=== PATIENT | female | born 1980 | race American Indian/Alaskan Native ===

== ENCOUNTER 2016-10-02 12:49 | Emergency (ER) | payer BC, MEDICAID ==
[2016-10-02 12:56] VITALS: BMI 27.4
[2016-10-02 12:58] VITALS: BP 122/79; PULSE 70; RESP 19; TEMP 98.3; O2SAT 100
[2016-10-02] MEDS ORDERED: Naproxen 500 MG TAB PO ONE ×2 (13:09→13:15)
--- NOTE | 2016-10-02 13:15 | ED PDOC ---
HPI: General Adult Time Seen by Provider: 10/02/16 13:02 Chief Complaint (Provider): Neck pain History/Exam Limitations: no limitations Onset/Duration Of Symptoms: Hrs Current Symptoms Are (Timing): Still Present Severity: Moderate Additional Complaint(s): The pt is a 35yo female, no pertinent PMHx, presents to the ED for evaluation of left sided neck pain since this morning. Pt reports she woke up today and heard a crack in her neck; she reports taking 400 mg Motrin today without relief. Pt states shortly after she developed pain and numbness to her left arm. She denies any trauma, chest pain, fever, shortness of breath, sore throat , head injury. Pt offers no additional medical complaints. Past Medical History Reviewed: Historical Data, Nursing Documentation, Vital Signs Vital Signs: Last Vital Signs Temp 98.3 F 10/02/16 12:56 Pulse 70 10/02/16 12:56 Resp 19 10/02/16 12:56 BP 122/79 10/02/16 12:56 Pulse Ox 100 10/02/16 13:21 - Medical History PMH: No Chronic Diseases Denies: Chronic Kidney Disease - Surgical History Surgical History: No Surg Hx - Family History Family History: States: Unknown Family Hx - Home Medications Home Medications: Ambulatory Orders Medication Instructions Recorded Cyclobenzaprine [Cyclobenzaprine 10 mg PO Q8 PRN #30 tab 10/02/16 HCl] Naproxen [Naprosyn] 500 mg PO BID PRN #30 tab 10/02/16 - Allergies Allergies/Adverse Reactions: Allergies Allergy/AdvReac Type Severity Reaction Status Date / Time No Known Allergies Allergy Verified 12/23/13 00:54 Review of Systems ROS Statement: Except As Marked, All Systems Reviewed And Found Negative Constitutional: Negative for: Fever Cardiovascular: Negative for: Chest Pain Respiratory: Negative for: Shortness of Breath Musculoskeletal: Positive for: Neck Pain, Arm Pain (left) Neurological: Negative for: Other (head injury) Physical Exam - Reviewed Nursing Documentation Reviewed: Yes Vital Signs Reviewed: Yes - Physical Exam Appears: Positive for: Well, Non-toxic, No Acute Distress Head Exam: Positive for: ATRAUMATIC, NORMAL INSPECTION, NORMOCEPHALIC Skin: Positive for: Normal Color, Warm, DRY Eye Exam: Positive for: Normal appearance Neck: Positive for: Normal ((+) left sided paracervical muscle tenderness with spasm. (+) good specimen preparation assistant strength b/l. (-) midline cervical tenderness), Supple Cardiovascular/Chest: Positive for: Regular Rate, Rhythm Respiratory: Negative for: Respiratory Distress Pulses-Radial (L): 2+ Pulses-Radial (R): 2+ Back: Negative for: L CVA Tenderness, R CVA Tenderness Neurologic/Psych: Positive for: Alert, Oriented - Laboratory Results Urine POC: Negative - ECG O2 Sat by Pulse Oximetry: 100 - Radiology X-Ray: Interpreted by Me (C-spine x-ray) X-Ray Interpretation: Other (C-spine straightening; no fx) Medical Decision Making Medical Decision Making: Time: 1315 Impression: Neck pain Plan: -- XR C-Spine -- Flexeril -- Naproxen Scribe Attestation: Documented by Vicky Yates acting as a scribe for NOEL Lo Provider Attestation: All medical record entries made by the Scribe were at my direction and personally dictated by me. I have reviewed the chart and agree that the record accurately reflects my personal performance of the history, physical exam, medical decision making, and the department course for this patient. I have also personally directed, reviewed, and agree with the discharge instructions and disposition. Disposition - Clinical Impression Clinical Impression: Cervical radiculopathy - Patient ED Disposition Is Patient to be Admitted: No - Disposition Referrals: [facility] [Outside] Disposition: Routine/Home Disposition Time: 14:08 Condition: IMPROVED Prescriptions: Cyclobenzaprine [Cyclobenzaprine HCl] 10 mg PO Q8 PRN #30 tab PRN Reason: Muscle Spasm Naproxen [Naprosyn] 500 mg PO BID PRN #30 tab PRN Reason: Pain Instructions: Cervical Radiculopathy (ED) Forms: [employer] (Macedonian)
--- NOTE | 2016-10-02 14:50 | RAD ---
PROCEDURE: Cervical Spine Radiographs. HISTORY: Pain. No history of recent/ related trauma provided COMPARISON: None. FINDINGS: BONES: Alignment maintained. No fracture. Dens Intact. DISC SPACES: Normal. SOFT TISSUES: Normal. No prevertebral soft tissue swelling. OTHER FINDINGS: None. IMPRESSION: No significant or acute findings to account for/ related to the clinical presentation.
== END 2016-10-02 14:24 | disposition home or self-care (01) ==
LOC: H.ER 12:49
DX: M54.12 Radiculopathy, cervical region (principal)

== ENCOUNTER 2018-01-22 10:53 | Emergency (ER) | payer BC, MEDICAID ==
[2018-01-22 11:08] VITALS: BP 110/79; PULSE 93; RESP 18; TEMP 98.6; O2SAT 100
[2018-01-22 11:09] VITALS: BMI 29.2
[2018-01-22] MEDS ORDERED: Acetaminophen-Codeine 300/30 mg Tab PO STA (11:56)
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
== END 2018-01-22 12:34 | disposition home or self-care (01) ==
LOC: H.ER 10:53
DX: T20.12XA Burn of first degree of lip(s), initial encounter (principal)